=== PATIENT | female | born 1950 ===

== ENCOUNTER 2017-06-19 14:20 | Emergency (ER) | payer MEDICARE ==
[2017-06-19 14:20] VITALS: BMI 26.4
[2017-06-19 15:21] VITALS: RESP 18; TEMP 97.7
--- NOTE | 2017-06-19 15:39 | C.PDOC ---
History Of Present Illness 67 year old female present to the ED for a wound check. Patient was evaluated in this ED on 06/17 and underwent I&D of an abscess to her right back region. Patient notes some pain persists but denies fever, chills, increased erythema, or drainage from the site. Time Seen by Provider: 06/19/17 15:23 Chief Complaint (Nursing): Wound Check History Per: Patient History/Exam Limitations: no limitations Onset/Duration Of Symptoms: Hrs Current Symptoms Are (Timing): Still Present Location Of Injury: Right: Back, Posterior: Back Quality Of Symptoms: Painful. denies: Draining Additional History Per: Patient Past Medical History Reviewed: Historical Data, Nursing Documentation, Vital Signs Vital Signs: Last Vital Signs Temp 97.7 F 06/19/17 15:07 Pulse 72 06/19/17 15:55 Resp 18 06/19/17 15:55 BP 132/78 06/19/17 15:55 Pulse Ox 99 06/19/17 18:16 - Medical History PMH: HTN Surgical History: No Surg Hx Family History: States: Unknown Family Hx - Social History Hx Alcohol Use: No Hx Substance Use: No - Immunization History Hx Tetanus Toxoid Vaccination: No Hx Influenza Vaccination: No Hx Pneumococcal Vaccination: No Review Of Systems Constitutional: Negative for: Fever, Chills Skin: Positive for: Other (wound check to right back. no drainage ) Physical Exam - Physical Exam Appears: Non-toxic, No Acute Distress Skin: Warm, Dry, Other (2cm area of erythema to right inferior scapular area with packing intact ) Head: Atraumatic, Normacephalic Eye(s): bilateral: Normal Inspection, EOMI Nose: Normal Oral Mucosa: Moist Chest: Symmetrical Respiratory: No Accessory Muscle Use Extremity: Normal ROM Neurological/Psych: Oriented x3, Normal Speech, Normal Cognition ED Course And Treatment O2 Sat by Pulse Oximetry: 99 (on RA) Pulse Ox Interpretation: Normal Progress Note: Packing removed. Wound was irrigated with normal saline. No purulent discharge expressed. Wound dressed with dry, sterile dressing. Pt tolerated well. Patient is resting comfortably, showing no signs of distress and is stable for discharge. Patient is advised to follow up with her PMD and referred surgeon for further evaluation. Disposition - Disposition Referrals: Mason Ratliff MD [Staff Provider] - Disposition: HOME/ ROUTINE Disposition Time: 15:39 Condition: STABLE Additional Instructions: Follow up with primary medical doctor in 1-3 days without fail for further evaluation. Take medications as prescribed. Return to the emergency department at any time if symptoms persist or worsen. Instructions: Acute Wound Care (ED) Forms: [facility] (Indian) - Clinical Impression Clinical Impression: Abscess - PA / SURFACE MOUNT TECHNOLOGY OPERATOR / Resident Statement MD/DO has reviewed & agrees with the documentation as recorded. - Scribe Statement The provider has reviewed the documentation as recorded by the Scribe (Idania Hawley) All medical record entries made by the Scribe were at my direction and personally dictated by me. I have reviewed the chart and agree that the record accurately reflects my personal performance of the history, physical exam, medical decision making, and the department course for this patient. I have also personally directed, reviewed, and agree with the discharge instructions and disposition.
[2017-06-19 15:55] VITALS: BP 132/78; PULSE 72
[2017-06-19 17:57] VITALS: O2SAT 99
== END 2017-06-19 16:02 | disposition home or self-care (01) ==
LOC: C.ER 14:20
DX: L02.212 Cutaneous abscess of back [any part, except buttock and flank] (principal)

== ENCOUNTER 2017-07-14 06:00 | Day surgery (SDC) | payer MEDICARE ==
[2017-07-10 12:24] VITALS: BMI 27.3
[2017-07-14] MEDS: Bupivacaine-Epi 0.25%-1:200,000 PF Inj ONE ×2 (07:38→09:39)
[2017-07-14] MEDS: Lidocaine 1% Inj (20ml) ONE ×2 (07:38→09:39)
[2017-07-14] MEDS ORDERED: Lactated Ringer's 1,000 ML IV ONE ×2 (07:39)
[2017-07-14] MEDS: ceFAZolin IV 2 gm in Dextrose 2 GM/50 ML BAG IVPB ONE ×2 (07:39→09:36)
[2017-07-14] MEDS ORDERED: Midazolam 2 MG/2 ML VIAL ONE (07:56)
[2017-07-14] MEDS ORDERED: Propofol 10 mg/ml Inj (20 ML) ONE ×2 (07:56→09:55)
--- NOTE | 2017-07-14 10:35 | PCM.SURG1 ---
Surgeon's Initial Post Op Note - Surgeon's Notes Surgeon: Dr. Ratliff Appellate Conferee: PGY1 Pre-Operative Diagnosis: Sebaceous cyst of the back Operative Findings: see op note Post-Operative Diagnosis: as above Operation Performed: excision of sebaceous cyst of the back Specimen/Specimens Removed: Sebaceous cyst Estimated Blood Loss: EBL {In ML}: 5 Drains Used: No Drains Post-Op Condition: Good Date of Surgery/Procedure: 07/14/17 Time of Surgery/Procedure: 09:30
[2017-07-14] MEDS ORDERED: Oxycodone/Acetaminophen 5/325 mg Tab PO ONE (10:38)
[2017-07-14 11:28] VITALS: RESP 18; O2SAT 99
[2017-07-14 13:23] VITALS: BP 128/57; PULSE 78; TEMP 98
--- NOTE | 2017-07-14 18:33 | OP ---
PROCEDURE DATE: 07/14/2017 PREOPERATIVE DIAGNOSIS: Sebaceous cyst of the back. POSTOPERATIVE DIAGNOSIS: Sebaceous cyst of the back. PROCEDURE DONE: 1. Excision of sebaceous cyst of the back 4 x 3 cm in size. 2. Layer closure of the wound 4 x 3 cm size. SURGEON: Mason Ratliff MD BED AND BREAKFAST OPERATOR: Dr. Matthew Carter. ANESTHESIA: Local anesthesia plus sedation. ESTIMATED BLOOD LOSS: Around 10 mL. DRAIN: None. PATHOLOGY: Sebaceous cyst was sent for the pathology. COMPLICATIONS: None. INTRAOPERATIVE FINDINGS: The patient had approximately 4 x 3 cm sebaceous cyst of the back. DESCRIPTION OF PROCEDURE: On intraoperative steps, this 67-year-old female who was diagnosed with sebaceous cyst of the right mid back and the patient was consented for the excision, brought to the OR and placed in left lateral position. After induction of the sedation, the back was prepped and draped in usual sterile fashion. Local anesthesia was injected. Elliptical 4-cm incision was made. After incising skin and subcutaneous tissue, upper and lower flap was created. Medial and lateral dissections were done. Sebaceous cyst was completely excised from underlying subcutaneous tissue as well as extension into the facial layer and the hemostasis was achieved. The wound was irrigated and the wound was closed in multiple layer; upper flap to the underlying fascia, lower flap to the underlying fascia, another layer of the subcu with 2-0 Vicryl, skin with a 4-0 Monocryl, and another layer of the skin with a 4-0 nylon and dry sterile dressing was applied. The patient tolerated the procedure well. Count of the instrument and gauze was correct. There was no apparent complication. The patient was sent to the sent to the Postanesthesia Care Unit in stable condition. Mason Ratliff MD
== END 2017-07-14 13:55 | disposition home or self-care (01) ==
LOC: C.SDS 06:00
PROVIDERS: ATTEND Surgery Surgical Critical Care
DX: L72.3 Sebaceous cyst (principal)
CPT/HCPCS: 11406; 12032; J0690; J2250; J2704; J3010; J7120